=== PATIENT | male | born 1925 | race Caucasian/White ===

== ENCOUNTER → 2017-02-11 | Outpatient (CLI) | payer OTHER ==
[~2017-02-11] MED LIST: ACET-1256 PO; ACET325T96 PO; ASPEC81 PO; ASPI-232 PO; BISA10SU38 PR; DXY100 PO; FLUO10CA48 PO; FLVHFA110 INH; FLVHFA220 INH; GLIM1TAB PO; GLIM2TAB PO; GLIM2TAB2 PO; INSU100I SC; LEVO100T PO; LISI-725 PO; METF1000 PO; MOMLX PO; MORP-157 PO; MORP15TA19 PO; OXYC10SO SL; POLY335019 PO; PRLSR20 PO; PRNJ PO; SCOP1.5D2 TD; SENN-83 PO; SIMV10TA2 PO; SODIENE PR; TAMS0.4C38 PO; TRAM-10 PO
[2017-02-11 09:01] LABS: ESTIMATED AVERAGE GLUCOSE 186 mg/dl; HA1C FLAG Normal (Normal)
== END ==
LOC: C.LABCC 08:08
PROVIDERS: ATTEND Internal Medicine
DX: E11.9 Type 2 diabetes mellitus without complications (principal)

== ENCOUNTER → 2017-04-15 | Outpatient (CLI) | payer OTHER ==
[~2017-04-15] MED LIST changes: -SCOP1.5D2 TD; +SCOP1DIS14 TD
== END ==
LOC: C.LABCC 07:42
PROVIDERS: ATTEND Internal Medicine
DX: E03.9 Hypothyroidism, unspecified (principal)

== ENCOUNTER 2017-06-05 15:23 | Inpatient (IN) | payer OTHER ==
[~2017-06-05] VITALS: Ht 177.8 cm; Wt 73.7 kg
[~2017-06-05 15:23] MED LIST changes: -ASPI-232 PO; -FLVHFA110 INH; -GLIM2TAB2 PO; -MORP-157 PO; -OXYC10SO SL; -SCOP1DIS14 TD
[2017-06-05] MEDS ORDERED: SODIUM CHLORIDE 0.9% 1000ML 1,000 ML IV STA (15:37)
[2017-06-05] MEDS ORDERED: DOPamine 400MG / D5W 400 MG IV STA (15:38)
[2017-06-05] MEDS ORDERED: SODIUM CHLORIDE 0.9% 500ML 500 ML IV STA (15:38)
[2017-06-05] MEDS ORDERED: ATROPINE SULFATE 0.1 MG/ML 5ML SYR IV STA (15:39)
[2017-06-05 15:45] VITALS: O2SAT 100
[2017-06-05 15:59] LABS: ISTAT CREATININE 1.9 mg/dl (0.6-1.3); ISTAT HEMOGLOBIN 12.9 g/dl (14.0-18.0); ISTAT IONIZED CALCIUM 1.16 mmol/l (1.12-1.32)
--- NOTE | 2017-06-05 16:00 | DIAGNOSTIC IMAGING REPORT ---
SINGLE VIEW CHEST CLINICAL HISTORY: Weakness. Bradycardia. FINDINGS: An AP, portable, semierect chest radiograph is compared to study dated 10/13/2016 and correlated with chest CT dated 12/30/2011. The examination is significantly degraded by portable technique and patient rotation. The heart is enlarged. There is atherosclerotic calcification with uncoiling of the thoracic aorta. The pulmonary vasculature is noncongested. Apical scarring and chronic interstitial thickening is similar to previous. No airspace consolidation or large pleural effusion is identified. There is left basilar atelectasis. No pneumothorax is seen. The skeletal structures are osteopenic. The bony thorax is grossly intact. IMPRESSION: 1. Cardiomegaly without radiographic evidence of congestive failure. 2. There is atherosclerotic calcification with uncoiling of the thoracic aorta. The aortic/mediastinal silhouette appears widened from prior studies, likely related to marked patient rotation. Repeat examination with improved positioning is recommended. 3. No airspace consolidation or pleural effusion is identified. Electronically signed by: Jere Reyes M.D. 06/05/2017 3:59 PM Dictated Date/Time: 06/05/2017 3:56 PM
[2017-06-05 16:08] LABS: BASO % 0.2 %; BASO ABS # 0.03 K/uL (0-0.2); COMPLETE YES; EOS % 1.7 %; HEMATOCRIT 36.3 % (42-52); IG% 0.4 %; LYMPH % 14.7 %; LYMPH ABS # 2.38 K/uL (1.2-3.4); MEAN CORPUSCULAR HEMOGLOBIN 27.5 pg (25-34); MEAN PLATELET VOLUME 10.5 fL (7.4-10.4); MONO % 6.7 %; NEUT % 76.3 %; PLATELET COUNT 327 K/uL (130-400); RED BLOOD COUNT 4.22 M/uL (4.7-6.1); WHITE BLOOD COUNT 16.17 K/uL (4.8-10.8)
[2017-06-05 16:19] LABS: INR 1.1 (0.9-1.1); PROTHROMBIN TIME (PATIENT) 11.3 SECONDS (9.0-12.0)
[2017-06-05 16:25] LABS: ALT/SGPT 18 U/L (12-78); BLOOD UREA NITROGEN 35 mg/dl (7-18); BUN/CREATININE RATIO 17.6 (10-20); CALCIUM 8.7 mg/dl (8.5-10.1); CARBON DIOXIDE 25 mmol/L (21-32); CHLORIDE 102 mmol/L (98-107); GLUCOSE 243 mg/dl (70-99); MAGNESIUM 1.7 mg/dl (1.8-2.4); POTASSIUM 5.4 mmol/L (3.5-5.1); SODIUM 138 mmol/L (136-145)
[2017-06-05] MEDS ORDERED: ASPI-232 PO (16:35)
[2017-06-05] MEDS ORDERED: FLVHFA110 INH (16:35)
[2017-06-05] MEDS ORDERED: GLIM2TAB2 PO (16:35)
[2017-06-05] MEDS ORDERED: MORP-157 PO (16:35)
[2017-06-05 16:36] LABS: ALKALINE PHOSPHATASE 60 U/L (45-117); AST/SGOT 13 U/L (15-37); CKMB/CK RATIO 1.7 (0-3.0)
[2017-06-05 17:18] LABS: LYME DISEASE AB IGG NEG (NEG); LYME DISEASE AB IGM NEG (NEG)
--- NOTE | 2017-06-05 17:58 | History and Physical ---
History & Physical Date & Time of Service: Jun 05, 2017 at 17:52 Chief Complaint: Bradycardia Primary Care Physician: Jocelyn Mckeon History of Present Illness Patient brought from [facility] with profound bradycardia and hypotension. The patient has suffered from previous anoxic brain injury and does not recommend his family. The patient is minimally responsive in the emergency department. Patient had transient capture of a transcutaneous pacemaker and did have some improvement of his heart rate with dopamine infusion. The patient's POA, his stepson, presented to the hospital and requested that we not have any significant heroic lifesaving measures, he made him a DO NOT RESUSCITATE is understanding that he may pass away. The patient is markedly hypotensive and montiel appearing he is in mild discomfort this time he is frontal facility for comfort care measures with expected Past Medical/Surgical History Medical Problems: (1) Chronic obstructive lung disease Status: Chronic (2) Depression Status: Chronic (3) Diabetes mellitus type 2 Status: Chronic (4) Gastroesophageal reflux disease Status: Chronic (5) Hyperlipidemia Status: Chronic Family History Family history is unable to be obtained at this point in time due to the severity of illness of the patient Social History Smoking Status: Unknown if Ever Smoked Marital Status: Housing status: intermediate, other Occupational Status: retired Immunizations History of Influenza Vaccine: Unknown History of Tetanus Vaccine?: Unknown History of Pneumococcal: Yes Pneumococcal Date: February 14, 2001 History of Hepatitis B Vaccine: Unknown Multi-Drug Resistant Organisms History of MDRO: No Allergies Coded Allergies: Quinolones (Verified Allergy, Unknown, 10/13/16) Home Medications Scheduled Acetaminophen (Tylenol), 500 MG PO W/BREAKFAST Aspirin (Aspir-81), 1 TAB PO DAILY Fluoxetine (Prozac), 10 MG PO DAILY Fluticasone Propionate (Flovent Hfa), 2 PUFFS INH BID Glimepiride (Amaryl), 2 MG PO W/SUPPER Glimepiride (Glimepiride), 1.5 TAB PO W/BREAKFAST Levothyroxine Sodium (Synthroid), 100 MCG PO DAILY Lisinopril (Zestril), 20 MG PO DAILY Metformin Hcl (Glucophage), 1,000 MG PO BIDM Morphine Cont Rel (Ms Contin), 15 MG PO Q12 Omeprazole (Prilosec), 20 MG PO DAILY Polyethylene Glycol 3350 (Miralax), 17 GM PO DAILY Sennosides-Docusate Sodium (Senexon-S), 1 TAB PO QAM Simvastatin (Zocor), 10 MG PO QPM Tamsulosin Hcl (Flomax), 0.4 MG PO QAM Scheduled PRN Insulin Lispro (Human) (Humalog), 0 SC for sliding scale Physical Exam Vital Signs Date Time Temp Pulse Resp B/P (MAP) Pulse Ox O2 Delivery O2 Flow Rate FiO2 06/05/17 16:43 95 Nasal Cannula 6.0 06/05/17 16:40 80/51 06/05/17 16:35 78/49 06/05/17 16:33 66 99 06/05/17 16:30 79/45 06/05/17 16:29 80/44 06/05/17 16:25 75/46 06/05/17 16:23 104/44 06/05/17 16:18 64 06/05/17 16:15 68 26 52/38 06/05/17 16:14 35 06/05/17 16:13 63 06/05/17 16:08 35 06/05/17 16:03 73 06/05/17 16:00 64/41 06/05/17 15:58 74 06/05/17 15:53 83 06/05/17 15:48 82 06/05/17 15:45 72 22 64/42 100 Non-Rebreather 15.0 06/05/17 15:45 Non-Rebreather 15.0 06/05/17 15:45 100 Non-Rebreather 15.0 06/05/17 15:45 100 Non-Rebreather 06/05/17 15:43 89 06/05/17 15:38 89 06/05/17 15:35 86 General Appearance: + severe distress, + thin Head: normocephalic, atraumatic Neck: supple, trachea midline Respiratory/Chest: + respiratory distress, + decreased breath sounds, + accessory muscle use, + rhonchi Cardiovascular: + bradycardia, + systolic murmur Abdomen/GI: soft, + abnormal bowel sounds Extremities/Musculoskelatal: + pedal edema Neurologic/Psych: + depressed affect, + disoriented Diagnostics Laboratory Results Results Past 24 Hours Test 06/05/17 15:40 06/05/17 15:47 06/05/17 15:58 Range/Units Prothrombin Time 11.3 9.0-12.0 SECONDS Prothromb Time International Ratio 1.1 0.9-1.1 Activated Partial Thromboplast Time 26.5 21.0-31.0 SECONDS Partial Thromboplastin Ratio 1.0 Sodium Level 138 136-145 mmol/L Potassium Level 5.4 3.5-5.1 mmol/L Chloride Level 102 98-107 mmol/L Carbon Dioxide Level 25 21-32 mmol/L Anion Gap 11.0 20.0 16-25 mmol/L Blood Urea Nitrogen 35 7-18 mg/dl Creatinine 2.00 0.60-1.40 mg/dl Est Creatinine Clear Calc Drug Dose 25.9 ml/min Estimated GFR () 33.3 Estimated GFR (Non- 28.7 BUN/Creatinine Ratio 17.6 10-20 Random Glucose 243 70-99 mg/dl Calcium Level 8.7 8.5-10.1 mg/dl Magnesium Level 1.7 1.8-2.4 mg/dl Total Bilirubin 0.2 0.2-1 mg/dl Direct Bilirubin < 0.1 0-0.2 mg/dl Aspartate Amino Transf (AST/SGOT) 13 15-37 U/L Alanine Aminotransferase (ALT/SGPT) 18 12-78 U/L Alkaline Phosphatase 60 45-117 U/L Total Creatine Kinase 156 39-308 U/L Creatine Kinase MB 2.7 0.5-3.6 ng/ml Creatine Kinase MB Ratio 1.7 0-3.0 Total Protein 7.7 6.4-8.2 gm/dl Albumin 3.6 3.4-5.0 gm/dl Thyroid Stimulating Hormone (TSH) 5.060 0.300-4.500 uIu/ml Lyme Disease IgG Antibody NEG NEG Lyme Disease IgM Antibody NEG NEG Bedside Hemoglobin 12.9 14.0-18.0 g/dl Bedside Hematocrit 38 42-52 % Bedside Sodium 138 135-144 mEq/L Bedside Potassium 5.6 3.3-5.0 mEq/L Bedside Chloride 101 101-112 mEq/L Bedside Total CO2 24 24-31 mEq/l Bedside Blood Urea Nitrogen 33 7-18 mg/dl Bedside Creatinine 1.9 0.6-1.3 mg/dl Bedside Glucose (other) 251 70-99 mg/dl Bedside Ionized Calcium (Gama) 1.16 1.12-1.32 mmol/l White Blood Count 16.17 4.8-10.8 K/uL Red Blood Count 4.22 4.7-6.1 M/uL Hemoglobin 11.6 14.0-18.0 g/dL Hematocrit 36.3 42-52 % Mean Corpuscular Volume 86.0 80-100 fL Mean Corpuscular Hemoglobin 27.5 25-34 pg Mean Corpuscular Hemoglobin Concent 32.0 32-36 g/dl Platelet Count 327 130-400 K/uL Mean Platelet Volume 10.5 7.4-10.4 fL Neutrophils (%) (Auto) 76.3 % Lymphocytes (%) (Auto) 14.7 % Monocytes (%) (Auto) 6.7 % Eosinophils (%) (Auto) 1.7 % Basophils (%) (Auto) 0.2 % Neutrophils # (Auto) 12.35 1.4-6.5 K/uL Lymphocytes # (Auto) 2.38 1.2-3.4 K/uL Monocytes # (Auto) 1.08 0.11-0.59 K/uL Eosinophils # (Auto) 0.27 0-0.5 K/uL Basophils # (Auto) 0.03 0-0.2 K/uL RDW Standard Deviation 45.2 36.4-46.3 fL RDW Coefficient of Variation 14.5 11.5-14.5 % Immature Granulocyte % (Auto) 0.4 % Immature Granulocyte # (Auto) 0.06 0.00-0.02 K/uL Diagnostic Radiology There is mild hyperkalemia renal failure with creatinine of 2 other (chest x-ray without significant abnormalities) other (patient is third-degree heart block and bradycardia) Impression Assessment and Plan 89-year-old male from a [facility] facility who presents with third-degree heart block and hypotension. There is no direct reason for the heart block he only has mild hyperkalemia. Patient was seen by cardiology and discussions for an emergent and transvenous pacemaker were undertaken. The power of litigation attorney associate did not wish to pursue any aggressive measures. Next The patient was brought into facility for comfort care measures, intravenous fluids and dopamine will be stopped, his heart block likely progressive hypotension and that could be expected. The patient will be given when necessary morphine and Ativan transdermal scopolamine and oxygen with antiemetics of Zofran and Phenergan if needed Family is at the bedside and understanding VTE Prophylaxis VTE Risk Assessment Done? Y/N: Yes Risk Level: Moderate
[2017-06-05] MEDS ORDERED: ATROPINE SULFATE 1% OP SOLN 2 ML BTL PO PRN (18:00)
[2017-06-05] MEDS ORDERED: LORAZEPAM 2 MG/ML 1 ML VIAL IV PRN ×2 (18:00)
[2017-06-05] MEDS ORDERED: ONDANSETRON INJ 2 MG/ML 2 ML VIAL IV PRN (18:00)
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
[2017-06-05 18:27] VITALS: O2SAT 95; Ht 177.8 cm; Wt 73.7 kg
[2017-06-05 18:45] VITALS: PULSE 66
[2017-06-05] MEDS: MoRPHine SULFATE 2 MG/ML CARP IV PRN (19:31)
--- NOTE | 2017-06-05 19:31 | EMERGENCY ROOM VISIT NOTE ---
History Report prepared by Barbara: Deyvi Batista Under the Supervision of: Dr. Chinmay Dumont M.D. First contact with patient: 15:24 Stated Complaint: BRADYCARDIA History of Present Illness The patient is a 89 year old male who presents to the Emergency Room with complaints of persistent bradycardia and hypotension beginning today. He is a resident at [facility]. The patient also complains of chest pain and SOB. Per EMS, the patient had his vital signs checked today after he was found to have an altered mental status. They state that the patient was found to have a heart rate in the 30's and a blood pressure of 60/40 on scene. They state that the patient appeared to be in a 3rd degree heart block on the emergency communications operator as well. The patient denies any abdominal pain or headache. HPI limited secondary to mental status. Source of History: patient, EMS History Limited By: other (mental status) Onset: Today Symptom Intensity: heart rate in the 30's and a blood pressure of 60/40 Quality: other (hypotension and bradycardia) Timing: other (persistent) Associated Symptoms: + chest pain, + SOB, No headache, No abdominal pain Note: Additional symptoms: altered mental status. Review of Systems ROS limited secondary to mental status. Past Medical & Surgical Medical Problems: (1) Chronic obstructive lung disease (2) Complete heart block (3) Depression (4) Diabetes mellitus type 2 (5) Gastroesophageal reflux disease (6) Hyperlipidemia (7) Need for comfort care Family History Unobtainable secondary to mental status. Social History Smoking Status: Never Smoker Marital Status: Housing Status: [facility] Occupation Status: retired Current/Historical Medications Scheduled Acetaminophen (Tylenol), 500 MG PO W/BREAKFAST Aspirin (Aspir-81), 1 TAB PO DAILY Fluoxetine (Prozac), 10 MG PO DAILY Fluticasone Propionate (Flovent Hfa), 2 PUFFS INH BID Glimepiride (Amaryl), 2 MG PO W/SUPPER Glimepiride (Glimepiride), 1.5 TAB PO W/BREAKFAST Levothyroxine Sodium (Synthroid), 100 MCG PO DAILY Lisinopril (Zestril), 20 MG PO DAILY Metformin Hcl (Glucophage), 1,000 MG PO BIDM Morphine Cont Rel (Ms Contin), 15 MG PO Q12 Omeprazole (Prilosec), 20 MG PO DAILY Polyethylene Glycol 3350 (Miralax), 17 GM PO DAILY Sennosides-Docusate Sodium (Senexon-S), 1 TAB PO QAM Simvastatin (Zocor), 10 MG PO QPM Tamsulosin Hcl (Flomax), 0.4 MG PO QAM Scheduled PRN Insulin Lispro (Human) (Humalog), 0 SC for sliding scale Allergies Coded Allergies: Quinolones (Verified Allergy, Unknown, 10/13/16) Physical Exam Vital Signs Date Time Temp Pulse Resp B/P (MAP) Pulse Ox O2 Delivery O2 Flow Rate FiO2 06/05/17 17:45 63 93/49 91 06/05/17 17:30 61 99/51 89 06/05/17 17:15 63 95/53 93 06/05/17 17:00 66 99/49 90 06/05/17 16:45 66 86/43 93 06/05/17 16:43 95 Nasal Cannula 6.0 06/05/17 16:40 80/51 06/05/17 16:35 78/49 06/05/17 16:33 66 99 06/05/17 16:30 79/45 06/05/17 16:29 80/44 06/05/17 16:25 75/46 06/05/17 16:23 104/44 06/05/17 16:18 64 06/05/17 16:15 68 26 52/38 06/05/17 16:14 35 06/05/17 16:13 63 06/05/17 16:08 35 06/05/17 16:03 73 06/05/17 16:00 64/41 06/05/17 15:58 74 06/05/17 15:53 83 06/05/17 15:48 82 06/05/17 15:45 72 22 64/42 100 Non-Rebreather 15.0 06/05/17 15:45 Non-Rebreather 15.0 06/05/17 15:45 100 Non-Rebreather 15.0 06/05/17 15:45 100 Non-Rebreather 06/05/17 15:43 89 06/05/17 15:38 89 06/05/17 15:35 86 Physical Exam GENERAL: Awake, alert, uncomfortable-appearing, in no distress HENT: Normocephalic, atraumatic. Oropharynx unremarkable. EYES: Normal conjunctiva. Sclera non-icteric. NECK: Supple. No nuchal rigidity. FROM. No JVD. RESPIRATORY: Clear to auscultation. CARDIAC: Bradycardic rate, normal rhythm. Extremities warm and well perfused. Pulses equal. ABDOMEN: Soft, non-distended. No tenderness to palpation. No rebound or guarding. No masses. RECTAL: Deferred. MUSCULOSKELETAL: Chest examination reveals no tenderness. The back is symmetrical on inspection without obvious abnormality. There is no CVA tenderness to palpation. No joint edema. LOWER EXTREMITIES: Calves are equal size bilaterally and non-tender. No edema. No discoloration. Cool to the touch. Distal pulses non-palpable. NEURO: Normal sensorium. No sensory or motor deficits noted. SKIN: No rash or jaundice noted. Medical Decision & Procedures ER Provider Diagnostic Interpretation: X-ray: Per my interpretation, radiologist review. SINGLE VIEW CHEST FINDINGS: An AP, portable, semierect chest radiograph is compared to study dated 10/13/2016 and correlated with chest CT dated 12/30/2011. The examination is significantly degraded by portable technique and patient rotation. The heart is enlarged. There is atherosclerotic calcification with uncoiling of the thoracic aorta. The pulmonary vasculature is noncongested. Apical scarring and chronic interstitial thickening is similar to previous. No airspace consolidation or large pleural effusion is identified. There is left basilar atelectasis. No pneumothorax is seen. The skeletal structures are osteopenic. The bony thorax is grossly intact. IMPRESSION: 1. Cardiomegaly without radiographic evidence of congestive failure. 2. There is atherosclerotic calcification with uncoiling of the thoracic aorta. The aortic/mediastinal silhouette appears widened from prior studies, likely related to marked patient rotation. Repeat examination with improved positioning is recommended. 3. No airspace consolidation or pleural effusion is identified. Electronically signed by: Jere Reyes M.D. Laboratory Results 06/05/17 15:58 Red Blood Count 4.22, Mean Corpuscular Volume 86.0, Mean Corpuscular Hemoglobin 27.5, Mean Corpuscular Hemoglobin Concent 32.0, Mean Platelet Volume 10.5, Neutrophils (%) (Auto) 76.3, Lymphocytes (%) (Auto) 14.7, Monocytes (%) (Auto) 6.7, Eosinophils (%) (Auto) 1.7, Basophils (%) (Auto) 0.2, Neutrophils # (Auto) 12.35, Lymphocytes # (Auto) 2.38, Monocytes # (Auto) 1.08, Eosinophils # (Auto) 0.27, Basophils # (Auto) 0.03 06/05/17 15:40 Test 06/05/17 15:40 06/05/17 15:47 06/05/17 15:58 Prothrombin Time 11.3 SECONDS (9.0-12.0) Prothromb Time International Ratio 1.1 (0.9-1.1) Activated Partial Thromboplast Time 26.5 SECONDS (21.0-31.0) Partial Thromboplastin Ratio 1.0 Est Creatinine Clear Calc Drug Dose 25.9 ml/min Estimated GFR () 33.3 Estimated GFR (Non- 28.7 BUN/Creatinine Ratio 17.6 (10-20) Calcium Level 8.7 mg/dl (8.5-10.1) Magnesium Level 1.7 mg/dl (1.8-2.4) Total Bilirubin 0.2 mg/dl (0.2-1) Direct Bilirubin < 0.1 mg/dl (0-0.2) Aspartate Amino Transf (AST/SGOT) 13 U/L (15-37) Alanine Aminotransferase (ALT/SGPT) 18 U/L (12-78) Alkaline Phosphatase 60 U/L (45-117) Total Creatine Kinase 156 U/L (39-308) Creatine Kinase MB 2.7 ng/ml (0.5-3.6) Creatine Kinase MB Ratio 1.7 (0-3.0) Total Protein 7.7 gm/dl (6.4-8.2) Albumin 3.6 gm/dl (3.4-5.0) Thyroid Stimulating Hormone (TSH) 5.060 uIu/ml (0.300-4.500) Lyme Disease IgG Antibody NEG (NEG) Lyme Disease IgM Antibody NEG (NEG) Bedside Hemoglobin 12.9 g/dl (14.0-18.0) Bedside Hematocrit 38 % (42-52) Bedside Sodium 138 mEq/L (135-144) Bedside Potassium 5.6 mEq/L (3.3-5.0) Bedside Chloride 101 mEq/L (101-112) Bedside Total CO2 24 mEq/l (24-31) Anion Gap 20.0 mmol/L (16-25) Bedside Blood Urea Nitrogen 33 mg/dl (7-18) Bedside Creatinine 1.9 mg/dl (0.6-1.3) Bedside Glucose (other) 251 mg/dl (70-99) Bedside Ionized Calcium (Gama) 1.16 mmol/l (1.12-1.32) White Blood Count 16.17 K/uL (4.8-10.8) Red Blood Count 4.22 M/uL (4.7-6.1) Hemoglobin 11.6 g/dL (14.0-18.0) Hematocrit 36.3 % (42-52) Mean Corpuscular Volume 86.0 fL (80-100) Mean Corpuscular Hemoglobin 27.5 pg (25-34) Mean Corpuscular Hemoglobin Concent 32.0 g/dl (32-36) Platelet Count 327 K/uL (130-400) Mean Platelet Volume 10.5 fL (7.4-10.4) Neutrophils (%) (Auto) 76.3 % Lymphocytes (%) (Auto) 14.7 % Monocytes (%) (Auto) 6.7 % Eosinophils (%) (Auto) 1.7 % Basophils (%) (Auto) 0.2 % Neutrophils # (Auto) 12.35 K/uL (1.4-6.5) Lymphocytes # (Auto) 2.38 K/uL (1.2-3.4) Monocytes # (Auto) 1.08 K/uL (0.11-0.59) Eosinophils # (Auto) 0.27 K/uL (0-0.5) Basophils # (Auto) 0.03 K/uL (0-0.2) RDW Standard Deviation 45.2 fL (36.4-46.3) RDW Coefficient of Variation 14.5 % (11.5-14.5) Immature Granulocyte % (Auto) 0.4 % Immature Granulocyte # (Auto) 0.06 K/uL (0.00-0.02) Laboratory results reviewed by me Medications Administered Medications (Trade) Dose Ordered Sig/David Route Start Time Stop Time Status Last Admin Dose Admin Sodium Chloride 1,000 ml @ 125 mls/hr Q8H STAT IV 06/05/17 15:37 06/05/17 23:36 06/05/17 16:08 125 MLS/HR Dopamine HCl/ Dextrose 0 ml @ 0 mls/hr Q0M STAT IV 06/05/17 15:38 06/05/17 15:39 DC 06/05/17 15:42 10 MLS/HR Sodium Chloride 500 ml @ 999 mls/hr Q31M STAT IV 06/05/17 15:38 06/05/17 16:08 DC 06/05/17 15:43 999 MLS/HR Atropine Sulfate (Atropine Sulfate 0.1MG/Ml Inj) 0.5 mg NOW STAT IV 06/05/17 15:39 06/05/17 15:47 DC 06/05/17 15:59 0.5 MG ECG Indication: other (bradycardia and hypotension) Rate (beats per minute): 36 Rhythm: other (complete heart block) Findings: no acute ischemic change Change: Repeat ECG reveals a sinus rhythm with a 1st degree AV block. Septal Q-waves noted. No acute ischemic change seen. ED Course 1527: The patient was evaluated in room B1. A complete history and physical exam was performed. 1537: Ordered Sodium Chloride 1000 ml @ 125 mls/hr IV, Sodium Chloride 500 ml @ 999 mls/hr IV, Dopamine HCl/Dextrose IV, Atropine Sulfate 0.1 mg/mL Inj 0.5 mg IV. 1546: Limited cardiac ultrasound reveals bradycardic rate and no pericardial effusion. 1600: Dr. Rajan spoke with the patient's family. They would like to discuss whether the patient should proceed with an invasive procedure given [facility] the [facility]. The patient is still hypotensive at this time. 1622: The patient's family decided that they would not like to proceed with a pacemaker. They would like to continue with the medication, but stop the external pacemaker. 1637: Upon reexamination, the patient was resting. He is currently off of the pacemaker and is on 20 mcg/kg/min of Dopamine. I discussed the test results and treatment plan with his family. The patient will be evaluated for further management. 1725: The patient's family arrived. I updated them on the situation. Medical Decision Triage Nursing notes reviewed. The patient's presentation and history were concerning for altered mental status and profound bradycardia. Etiologies such as complete heart block, metabolic, infection, hypo/ hyperglycemia, electrolyte abnormalities, cardiac sources, intracerebral event, toxicologic, neurologic, lung disease as well as others were entertained. The patient was evaluated. I did take medical command on the patient. He appeared to be in a complete heart block. Initially atropine was ineffective. I did discuss the case with Dr. Panda of cardiology after discussion with EMS. He was standing by for the patient's arrival. Patient arrived in the emergency department and he was being paced. This was continued. He was on 80 mA and I did a bedside ultrasound. He did not have complete capture with this. He had poor contractility of his left ventricle. I-STAT was unremarkable except for a mild elevation of creatinine. When increased up to 100 mA there was no significant change in capture rate and the patient was extremely uncomfortable. At this point dopamine was ordered. Dr. Panda presented to the emergency department and we evaluated the patient together. The patient has significant chronic medical issues. We contacted the patient's family to discuss the case. It was felt that the patient was not an ideal candidate for a pacer. EP is not currently available here and he would need to be transferred. The patient has a poor quality of life as it is. Family notes that due to his dementia he does not even recognize them. After discussion between Dr. Panda and family it was felt that the patient will be made comfort measures. The patient was evaluated by Dr. Cartagena as well and he was in agreement. The patient's CBC revealed a mild leukocytosis. Remainder of his blood work was unremarkable. The family was updated when they presented to the emergency department. The patient was taken off the pacemaker and was on dopamine. This was titrated up to 20 prior to family arrival and the patient was found to be in a bradycardia with mild hypotension. He was perfusing. Repeat ECG was performed and revealed a sinus with first-degree AV block. The patient will be admitted to the hospital for further management. Consults Time Called: 1530 Consulting Physician: Dr. Panda -Cardiology Returned Call: 1533 Discussed the patient's case. Dr. Panda will come see the patient. Additional Consults: Time Called: 1625 Consulted Physician: [place]. [place] [place] Call: 1630 Additional Comments: Discussed the patient's case. The patient will be evaluated for further treatment and disposition. Impression Primary Impression: Complete heart block Additional Impression: Hypotension Critical Care I have personally spent greater than 45 minutes of critical care time in the direct management of this patient. This includes bedside care, interpretation of diagnostic studies, and testing, discussion with consultants, patient, and family members, and other required patient management activities. This 45 minutes is in excess of all separately billable procedures. Scribe Attestation The scribe's documentation has been prepared under my direction and personally reviewed by me in its entirety. I confirm that the note above accurately reflects all work, treatment, procedures, and medical decision making performed by me. Departure Information Dispostion Being Evaluated By Hospitalist Referrals GreenwoodJocelyn (PCP) Problem Qualifiers
[2017-06-05] MEDS ORDERED: LORAZEPAM INJ 0.5 MG in SYRINGE 0.75 ML IV PRN (19:45)
[2017-06-05] MEDS: LORAZEPAM INJ 1 MG in SYRINGE 0.5 ML IV PRN (19:47)
[2017-06-05] MEDS: SCOPOLAMINE 1.5 MG TDSY TD SCH (22:19)
[2017-06-05 23:39] VITALS: O2SAT 95
[2017-06-05 23:44] VITALS: BP 82/49
[2017-06-06] MEDS: CHECK SCOPOLAMINE PATCH PLACEMENT SCH ×4 (00:05→23:58)
[2017-06-06] MEDS: MoRPHine SULFATE 2 MG/ML CARP IV PRN ×4 (00:38→11:55)
[2017-06-06] MEDS: MoRPHine SULFATE 4 MG/ML 1 ML CARP\\VIAL IV PRN ×3 (13:44→20:05)
--- NOTE | 2017-06-06 15:22 | Progress Note ---
Subjective Date of Service: Jun 06, 2017. Subjective Pt evaluation today including: conversation w/ patient, physical exam, review of inpatient medication list Pain: appears comfortable PO Intake: not eating Voiding: no voiding problems patient had unwitnessed fall out of bed today, RN found him on knees by his bed got back into bed with assistance examined his head, no signs of injury, no obvious pain or distress will not answer questions appears comfortable at this time Problem List Medical Problems: (1) Anemia Status: Acute (2) Elevated lactic acid level Status: Acute (3) Hypotension Status: Acute Review of Systems could not review, not answering questions Medications Current Inpatient Medications Medications (Trade) Dose Ordered Sig/David Route Start Time Stop Time Status Last Admin Dose Admin Ondansetron HCl (Zofran Inj) 4 mg Q6H PRN IV 06/05/17 18:00 07/05/17 17:59 Lorazepam (Ativan Inj) 0.5 mg Q1H PRN IV 06/05/17 18:00 07/05/17 17:59 Lorazepam (Ativan Inj) 1 mg Q1H PRN IV 06/05/17 18:00 07/05/17 17:59 Morphine Sulfate (MoRPHine SULFATE INJ) 4 mg Q1H PRN IV 06/05/17 18:00 06/19/17 17:59 06/06/17 13:44 4 MG Morphine Sulfate (MoRPHine SULFATE INJ) 2 mg Q1H PRN IV 06/05/17 18:00 06/19/17 17:59 06/06/17 11:55 2 MG Scopolamine (Transderm-Scop Patch) 1.5 mg Q72H TD 06/05/17 18:00 07/05/17 17:59 06/05/17 22:19 1.5 MG Miscellaneous (Remove Transderm-Scop Patch) 1 ea Q72H N/A 06/08/17 18:00 07/08/17 17:59 Miscellaneous Information (Check Scopolamine Patch Placement) 1 ea QS N/A 06/06/17 00:00 07/06/17 00:00 06/06/17 07:36 1 EA Atropine Sulfate (ATROPINE SULFATE 1% Op Soln 2 ML) 4 drops Q2H PRN PO 06/05/17 18:00 07/05/17 17:59 Lorazepam 1 mg/ Syringe 1 ml @ 1 mls/min Q1H PRN IV 06/05/17 19:30 07/05/17 19:29 06/05/17 19:47 1 MLS/MIN Lorazepam 0.5 mg/ Syringe 1 ml @ 1 mls/min Q1H PRN IV 06/05/17 19:45 07/05/17 19:44 Objective Vital Signs Date Time Temp Pulse Resp B/P (MAP) Pulse Ox O2 Delivery O2 Flow Rate FiO2 06/06/17 08:35 Oxymask 6.0 06/05/17 23:44 82/49 (60) 06/05/17 23:39 95 Oxymask 6.0 06/05/17 18:46 51/41 06/05/17 18:45 66 06/05/17 18:30 63 06/05/17 18:27 95 Nasal Cannula 6.0 06/05/17 18:17 95/39 06/05/17 18:15 61 06/05/17 18:01 86/49 06/05/17 18:00 60 06/05/17 17:45 63 93/49 91 06/05/17 17:30 61 99/51 89 06/05/17 17:15 63 95/53 93 06/05/17 17:00 66 99/49 90 06/05/17 16:45 66 86/43 93 06/05/17 16:43 95 Nasal Cannula 6.0 06/05/17 16:40 80/51 06/05/17 16:35 78/49 06/05/17 16:33 66 99 06/05/17 16:30 79/45 06/05/17 16:29 80/44 06/05/17 16:25 75/46 06/05/17 16:23 104/44 06/05/17 16:18 64 06/05/17 16:15 68 26 52/38 06/05/17 16:14 35 06/05/17 16:13 63 06/05/17 16:08 35 06/05/17 16:03 73 06/05/17 16:00 64/41 06/05/17 15:58 74 06/05/17 15:53 83 06/05/17 15:48 82 06/05/17 15:45 72 22 64/42 100 Non-Rebreather 15.0 06/05/17 15:45 Non-Rebreather 15.0 06/05/17 15:45 100 Non-Rebreather 15.0 06/05/17 15:45 100 Non-Rebreather 06/05/17 15:43 89 06/05/17 15:38 89 06/05/17 15:35 86 Physical Exam General Appearance: WD/WN, no apparent distress Eyes: sclerae normal Neck: supple, no adenopathy, no JVD, trachea midline Respiratory/Chest: chest non-tender, lungs clear, normal breath sounds, no respiratory distress, no accessory muscle use Cardiovascular: no edema, no gallop, no JVD, no murmur, + bradycardia, + pertinent finding (weak pulses) Abdomen: normal bowel sounds, non tender, soft, no organomegaly Extremities: normal range of motion, non-tender, normal inspection, no pedal edema, no calf tenderness Neurologic/Psychiatric: coding compliance auditor II-XII nml as tested, + motor weakness, + depressed affect, + disoriented Skin: normal color, warm/dry, no rash Laboratory Results Last 24 Hours Test 06/05/17 15:40 06/05/17 15:47 06/05/17 15:58 06/05/17 16:01 Prothrombin Time 11.3 SECONDS Prothromb Time International Ratio 1.1 Activated Partial Thromboplast Time 26.5 SECONDS Partial Thromboplastin Ratio 1.0 Sodium Level 138 mmol/L Potassium Level 5.4 mmol/L Chloride Level 102 mmol/L Carbon Dioxide Level 25 mmol/L Anion Gap 11.0 mmol/L 20.0 mmol/L Blood Urea Nitrogen 35 mg/dl Creatinine 2.00 mg/dl Est Creatinine Clear Calc Drug Dose 25.9 ml/min Estimated GFR () 33.3 Estimated GFR (Non- 28.7 BUN/Creatinine Ratio 17.6 Random Glucose 243 mg/dl Calcium Level 8.7 mg/dl Magnesium Level 1.7 mg/dl Total Bilirubin 0.2 mg/dl Direct Bilirubin < 0.1 mg/dl Aspartate Amino Transf (AST/SGOT) 13 U/L Alanine Aminotransferase (ALT/SGPT) 18 U/L Alkaline Phosphatase 60 U/L Total Creatine Kinase 156 U/L Creatine Kinase MB 2.7 ng/ml Creatine Kinase MB Ratio 1.7 Total Protein 7.7 gm/dl Albumin 3.6 gm/dl Thyroid Stimulating Hormone (TSH) 5.060 uIu/ml Lyme Disease IgG Antibody NEG Lyme Disease IgM Antibody NEG Bedside Hemoglobin 12.9 g/dl Bedside Hematocrit 38 % Bedside Sodium 138 mEq/L Bedside Potassium 5.6 mEq/L Bedside Chloride 101 mEq/L Bedside Total CO2 24 mEq/l Bedside Blood Urea Nitrogen 33 mg/dl Bedside Creatinine 1.9 mg/dl Bedside Glucose (other) 251 mg/dl Bedside Ionized Calcium (Gama) 1.16 mmol/l White Blood Count 16.17 K/uL Red Blood Count 4.22 M/uL Hemoglobin 11.6 g/dL Hematocrit 36.3 % Mean Corpuscular Volume 86.0 fL Mean Corpuscular Hemoglobin 27.5 pg Mean Corpuscular Hemoglobin Concent 32.0 g/dl Platelet Count 327 K/uL Mean Platelet Volume 10.5 fL Neutrophils (%) (Auto) 76.3 % Lymphocytes (%) (Auto) 14.7 % Monocytes (%) (Auto) 6.7 % Eosinophils (%) (Auto) 1.7 % Basophils (%) (Auto) 0.2 % Neutrophils # (Auto) 12.35 K/uL Lymphocytes # (Auto) 2.38 K/uL Monocytes # (Auto) 1.08 K/uL Eosinophils # (Auto) 0.27 K/uL Basophils # (Auto) 0.03 K/uL RDW Standard Deviation 45.2 fL RDW Coefficient of Variation 14.5 % Immature Granulocyte % (Auto) 0.4 % Immature Granulocyte # (Auto) 0.06 K/uL Bedside Troponin I < 0.030 ng/ml Assessment and Plan 89-year-old male from a [facility] facility who presents with third-degree heart block and hypotension. There is no direct reason for the heart block he only has mild hyperkalemia. Patient was seen by cardiology and discussions for an emergent and transvenous pacemaker were undertaken. The power of corporate associate attorney did not wish to pursue any aggressive measures - complete AV block with associated hypotension: comfort measures only, patient appears comfortable today PRN Morphine, Ativan - unwitnessed fall to floor: examined patient, no apparent injuries, continue comfort care
[2017-06-06] MEDS: LORAZEPAM INJ 1 MG in SYRINGE 0.5 ML IV PRN ×2 (16:54→20:33)
--- NOTE | 2017-06-07 06:48 | Clinical Documentation Query ---
CLINICAL DOCUMENTATION QUERY Query #1/3 89 year old male who presents to the Emergency Room with complaints of persistent bradycardia, hypotension, SOB, an CP. In your clinical opinion is this patient being managed for: ( ) Respiratory failure in setting of CHB, cardiogenic shock, & CHF treated with O2, comfort care, scopolamine, morphine, and ativan. ( ) Other explanation of clinical findings (Please Explain) ( ) Unable to determine (Please Define) ( ) Need to Discuss ( ) Not Agree The medical record reflects the following clinical findings, treatment, and risk factors. Clinical Indicators: bradycardia as low as 35, tachypnea 26, hypotension 50's/40's. Documentation from H&P states, minimally responsive, +respiratory distress, +accessory muscle use, and rhonchi Treatment: O2, comfort care, scopolamine patch, morphine, ativan, Risk Factors: Age, CHB, Query #2/3 In your clinical opinion is this patient being managed for: ( ) Cardiogenic shock in setting of CHB treated with comfort measures, CXR, O2, IV morphine and ativan ( ) Other explanation of clinical findings (Please Explain) ( ) Unable to determine (Please Define) ( ) Need to Discuss ( ) Not Agree The medical record reflects the following clinical findings, treatment, and risk factors. Clinical Indicators: Bradycardia as low as mid 30's, hypotension as low as 50's/40's, patient was noted to minimally responsive and in respiratory distress. Treatment: O2, comfort care, scopolamine patch, morphine, ativan, Risk Factors: Age, CHB, Query #3/3 In your clinical opinion is this patient being managed for: ( ) Acute kidney failure in setting of CHB ( ) Other explanation of clinical findings (Please Explain) ( ) Unable to determine (Please Define) ( ) Need to Discuss ( ) Not Agree The medical record reflects the following clinical findings, treatment, and risk factors. Clinical Indicators: BUN 35, Creatinine 2.00, GFR 28.7 Treatment: Palliative care Risk Factors: Age, bradycardia, hypotension Please clarify and document your clinical opinion in the progress notes and discharge summary. Terms such as "probable", "suspected", "likely", "questionable", "possible", or "still to be ruled out" are acceptable. IF IN AGREEMENT, YOU MUST DOCUMENT ABOVE DIAGNOSTIC STATEMENT IN DAILY PROGRESS NOTES AND DISCHARGE SUMMARY. This document is not part of the patient's record. Thank You, Anatoly Read RN [phone]
[2017-06-07] MEDS: CHECK SCOPOLAMINE PATCH PLACEMENT SCH ×3 (07:38→23:29)
[2017-06-07] MEDS: LORAZEPAM INJ 1 MG in SYRINGE 0.5 ML IV PRN (14:23)
--- NOTE | 2017-06-07 15:03 | Progress Note ---
Subjective Date of Service: Jun 07, 2017. Subjective Pt evaluation today including: conversation w/ family, physical exam, review of inpatient medication list Pain: no pain PO Intake: not eating Voiding: incontinence patient resting comfortably, non-verbal this AM long talk with the step son at the bedside he was concerned that maybe he didn't make the right decision, maybe the patient should have fluids I assured him that he had made the right decision, the patient was comfortable step son felt relieved after our conversation Problem List Medical Problems: (1) Anemia Status: Acute (2) Elevated lactic acid level Status: Acute (3) Hypotension Status: Acute Review of Systems cannot review, non-verbal Medications Current Inpatient Medications Medications (Trade) Dose Ordered Sig/David Route Start Time Stop Time Status Last Admin Dose Admin Ondansetron HCl (Zofran Inj) 4 mg Q6H PRN IV 06/05/17 18:00 07/05/17 17:59 Lorazepam (Ativan Inj) 0.5 mg Q1H PRN IV 06/05/17 18:00 07/05/17 17:59 Lorazepam (Ativan Inj) 1 mg Q1H PRN IV 06/05/17 18:00 07/05/17 17:59 Morphine Sulfate (MoRPHine SULFATE INJ) 4 mg Q1H PRN IV 06/05/17 18:00 06/19/17 17:59 06/06/17 20:05 4 MG Morphine Sulfate (MoRPHine SULFATE INJ) 2 mg Q1H PRN IV 06/05/17 18:00 06/19/17 17:59 06/06/17 11:55 2 MG Scopolamine (Transderm-Scop Patch) 1.5 mg Q72H TD 06/05/17 18:00 07/05/17 17:59 06/05/17 22:19 1.5 MG Miscellaneous (Remove Transderm-Scop Patch) 1 ea Q72H N/A 06/08/17 18:00 07/08/17 17:59 Miscellaneous Information (Check Scopolamine Patch Placement) 1 ea QS N/A 06/06/17 00:00 07/06/17 00:00 06/07/17 07:38 1 EA Atropine Sulfate (ATROPINE SULFATE 1% Op Soln 2 ML) 4 drops Q2H PRN PO 06/05/17 18:00 07/05/17 17:59 Lorazepam 1 mg/ Syringe 1 ml @ 1 mls/min Q1H PRN IV 06/05/17 19:30 07/05/17 19:29 06/07/17 14:23 1 MLS/MIN Lorazepam 0.5 mg/ Syringe 1 ml @ 1 mls/min Q1H PRN IV 06/05/17 19:45 07/05/17 19:44 Objective Vital Signs Date Time Temp Pulse Resp B/P (MAP) Pulse Ox O2 Delivery O2 Flow Rate FiO2 06/07/17 08:00 Oxymask 6.0 06/07/17 00:00 Oxymask 6.0 06/06/17 16:00 Mask Physical Exam General Appearance: WD/WN, no apparent distress Respiratory/Chest: chest non-tender, lungs clear, normal breath sounds, no respiratory distress, no accessory muscle use Cardiovascular: no edema, no gallop, no JVD, no murmur, + bradycardia, + pertinent finding (weak pulses) Abdomen: normal bowel sounds, non tender, soft, no organomegaly Extremities: normal range of motion, non-tender, normal inspection, no pedal edema, no calf tenderness Neurologic/Psychiatric: community services officer II-XII nml as tested, no motor/sensory deficits, alert, normal mood/affect, oriented x 3 Skin: normal color, warm/dry, no rash Lymphatic: no adenopathy Assessment and Plan 89-year-old male from a residential facility who presents with third-degree heart block and hypotension. There is no direct reason for the heart block he only has mild hyperkalemia. Patient was seen by cardiology and discussions for an emergent and transvenous pacemaker were undertaken. The power of assistant city attorney did not wish to pursue any aggressive measures - complete AV block with associated hypotension: comfort measures only, patient continues to appear comfortable today PRN Morphine, Ativan assured patient's step son that he made the appropriate decision - CARMINA: Cr was up to 2.0 on admission, likely higher with no PO intake or fluids , not checking labs comfort measures, keep in hospital today due to using IV medications
[2017-06-07] MEDS: MoRPHine SULFATE 2 MG/ML CARP IV PRN (17:15)
[2017-06-07] MEDS: MoRPHine SULFATE 4 MG/ML 1 ML CARP\\VIAL IV PRN (23:01)
[2017-06-08] MEDS: MoRPHine SULFATE 2 MG/ML CARP IV PRN ×4 (06:12→23:50)
--- NOTE | 2017-06-08 07:46 | Clinical Documentation Query ---
CLINICAL DOCUMENTATION QUERY In your clinical opinion is this patient being managed for: ( xx ) Cardiogenic shock in setting of CHB treated with comfort measure, CXR, O2, IV morphine and ativan ( ) Other explanation of clinical findings (Please Explain) ( ) Unable to determine (Please Define) ( ) Need to Discuss ( ) Not Agree The medical record reflects the following clinical findings, treatment, and risk factors. Clinical Indicators: Bradycardia as low as mid 30's, hypotension as low as 50's/40's, patient was noted to minimally responsive and in respiratory distress. Treatment: O2, comfort care, scopolamine patch, morphine, ativan, Risk Factors: Age, CHB, Please clarify and document your clinical opinion in the progress notes and discharge summary. Terms such as "probable", "suspected", "likely", "questionable", "possible", or "still to be ruled out" are acceptable. IF IN AGREEMENT, YOU MUST DOCUMENT ABOVE DIAGNOSTIC STATEMENT IN DAILY PROGRESS NOTES AND DISCHARGE SUMMARY. This document is not part of the patient's record. Thank You, Anatoly Read, RN [phone]
[2017-06-08 08:00] VITALS: O2SAT 95
[2017-06-08] MEDS: CHECK SCOPOLAMINE PATCH PLACEMENT SCH ×3 (08:14→23:49)
--- NOTE | 2017-06-08 15:00 | Progress Note ---
Subjective Date of Service: Jun 08, 2017. Subjective pt is responsive to voice, moans and moves a bit, opens eyes. appears comfortable at rest Problem List Medical Problems: (1) Anemia Status: Acute (2) Elevated lactic acid level Status: Acute (3) Hypotension Status: Acute Review of Systems Constitutional: + weakness, + fatigue, No fever, No chills ROS is limited by pts lethargic state Objective Vital Signs Date Time Temp Pulse Resp B/P (MAP) Pulse Ox O2 Delivery O2 Flow Rate FiO2 06/08/17 00:00 Oxymask 6.0 06/07/17 20:00 Oxymask 6.0 06/07/17 16:00 Oxymask 6.0 Physical Exam General Appearance: WD/WN, + mild distress Respiratory/Chest: + respiratory distress, + decreased breath sounds, + accessory muscle use Cardiovascular: + bradycardia, + systolic murmur Abdomen: normal bowel sounds, soft Extremities: normal inspection, + pedal edema (trace) Assessment and Plan 89-year-old male from a halfway facility who presents with third-degree heart block cardiogenic shock and hypotension. There is no direct reason for the heart block he only has mild hyperkalemia. Patient was seen by cardiology and discussions for an emergent and transvenous pacemaker were undertaken. The power of criminal attorney did not wish to pursue any aggressive measures - complete AV block with associated hypotension: comfort measures only, patient continues to appear comfortable, will explore return to snf on hospice care PRN Morphine, Ativan - CARMINA: Cr was up to 2.0 on admission, likely higher with no PO intake or fluids , not checking labs comfort measures, continue but may return to snf is continues to sustain himself
--- NOTE | 2017-06-08 15:28 | Palliative Care Progress Note ---
Palliative Care Progress Note Date of Service Jun 08, 2017. Subjective meeting tomorrow afternoon with patient's son Noel Osborne. He is to call me with time.
[2017-06-08] MEDS: SCOPOLAMINE 1.5 MG TDSY TD SCH (16:57)
[2017-06-09] MEDS: CHECK SCOPOLAMINE PATCH PLACEMENT SCH (07:52)
[2017-06-09] MEDS: MoRPHine SULFATE 15 MG/0.75 ML UDP PO PRN ×2 (11:25→16:16)
[2017-06-09] MEDS ORDERED: SCOP1DIS14 TD (15:41)
--- NOTE | 2017-06-09 15:46 | Discharge Instructions ---
Discharge Instructions Date of Service Jun 09, 2017. Admission Reason for Admission: Complete Heart Block, Need For Comfort Care Discharge Discharge Diagnosis / Problem: third degress heart block Discharge Goals Goal(s): Decrease discomfort Activity Recommendations Activity Limitations: resume your previous activity . Instructions / Follow-Up Instructions / Follow-Up Hospice care at SNF Current Hospital Diet Patient's current hospital diet: Discharge Diet Recommended Diet: N/A (as tolerated comfort feeds) Pending Studies Studies pending at discharge: no Medical Emergencies . Who to Call and When: Medical Emergencies: If at any time you feel your situation is an emergency, please call 911 immediately. . Non-Emergent Contact Non-Emergency issues call your: Primary Care Provider . Past History Medical & Surgical History: (1) Complete heart block (2) Hyperlipidemia (3) Depression (4) Chronic obstructive lung disease (5) Benign hypertension . "Provider Documentation" section prepared by Good Mitchell. . VTE Core Measure Inpt VTE Proph given/why not?: Treatment not indicated (comfort care only)
[2017-06-09] MEDS ORDERED: OXYC10SO SL (16:12)
--- NOTE | 2017-06-09 16:20 | Discharge Summary ---
Discharge Summary Date of Service Jun 09, 2017. Discharge Summary Admission Date: Jun 05, 2017 at 17:52 Discharge Date: Jun 09, 2017 Discharge Disposition: long-term facility Principal Diagnosis: third-degree heart block Immunizations: Have You Had Influenza Vaccine: Unknown History of Tetanus Vaccine?: Unknown History of Pneumococcal: Yes Pneumococcal Date: February 14, 2001 History of Hepatitis B Vaccine: Unknown Consultations: Cardiology Medication Reconciliation New Medications: Oxycodone Oral Soln (Roxicodone Oral Soln) 5 Mg/5 Ml Soln 5 MG SL Q2H for Pain for 10 Days, #30 ML Scopolamine (Transderm-Scop) 1 Mg/3 Days Dis 1.5 MG TD Q72H for 9 Days, #3 PATCH Discontinued Medications: Acetaminophen (Tylenol) 500 Mg Tab 500 MG PO W/BREAKFAST, 0 Refills Aspirin (Aspir-81) 81 Mg Tab 1 TAB PO DAILY for 90 Days, #90 TAB 3 Refills Fluoxetine (Prozac) 10 Mg Cap 10 MG PO DAILY Fluticasone Propionate (Flovent Hfa) 120 Puffs/48852 Mcg Aero 2 PUFFS INH BID for 30 Days, #1 INHALER 3 Refills Glimepiride (Amaryl) 2 Mg Tab 2 MG PO W/SUPPER, TAB Glimepiride (Glimepiride) 2 Mg Tab 1.5 TAB PO W/BREAKFAST for 90 Days, TAB 3 Refills Insulin Lispro (Human) (Humalog) 100 Unit/Ml Inj 0 SC PRN for sliding scale bsg 351-400 = 8 units, 401-450 = 12 units, 451-500= 16 units, >500 = 18 units and recheck bsg in 2 hours and follow sliding scale Levothyroxine Sodium (Synthroid) 100 Mcg Tab 100 MCG PO DAILY for 30 Days, #30 TAB 5 Refills Lisinopril (Zestril) 20 Mg Tab 20 MG PO DAILY Metformin Hcl (Glucophage) 1,000 Mg Tab 1000 MG PO BIDM, TAB Morphine Cont Rel (Ms Contin) 15 Mg Tab 15 MG PO Q12, TAB DO NOT CRUSH Omeprazole (Prilosec) 20 Mg Capcr 20 MG PO DAILY Polyethylene Glycol 3350 (Miralax) 1 Pow Pow 17 GM PO DAILY Sennosides-Docusate Sodium (Senexon-S) 1 Tab Tab 1 TAB PO QAM Simvastatin (Zocor) 10 Mg Tab 10 MG PO QPM Tamsulosin Hcl (Flomax) 0.4 Mg Cap 0.4 MG PO QAM, CAP Hospital Course Patient is an 89 year old who was living in a assisted facility secondary to anoxic brain injury. He presented with profound bradycardia hypotension and was placed on dopamine. Conversation was had with the patient' s power of assistant prosecuting attorney cardiology was consulted. Based upon his advanced age and quality of life decision was made not to pursue pacemaker placement and the patient was changed to comfort care only. Consultation was obtained with palliative care and the patient will return to the assisted facility with hospice care once he returns. Patient is returning to the facility for additional comfort measures. CODE STATUS DO NOT RESUSCITATE Total Time Spent: Greater than 30 minutes This includes examination of the patient, discharge planning, medication reconciliation, and communication with other providers. Discharge Instructions Please refer to the electronic Patient Visit Report (Discharge Instructions) for additional information.
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
== END 2017-06-09 17:04 | disposition hospice, inpatient (51) | DRG 308 ==
LOC: EDBD 15:23 → C.EDB 15:23 → C.4E 17:52 → ENRESERV 18:11
PROVIDERS: ADMIT Internal Medicine; ATTEND Internal Medicine
DX: I44.2 Atrioventricular block, complete (principal); R57.0 Cardiogenic shock; N17.9 Acute kidney failure, unspecified; I95.9 Hypotension, unspecified; Z51.5 Encounter for palliative care; Z66 Do not resuscitate; W06.XXXA Fall from bed, initial encounter; Y92.230 Patient room in hospital as the place of occurrence of the external cause; E11.9 Type 2 diabetes mellitus without complications; I10 Essential (primary) hypertension; J44.9 Chronic obstructive pulmonary disease, unspecified; G89.21 Chronic pain due to trauma; E03.9 Hypothyroidism, unspecified; K21.9 Gastro-esophageal reflux disease without esophagitis; N40.0 Benign prostatic hyperplasia without lower urinary tract symptoms; Z87.820 Personal history of traumatic brain injury; Z87.01 Personal history of pneumonia (recurrent); Z79.1 Long term (current) use of non-steroidal anti-inflammatories (NSAID); Z79.82 Long term (current) use of aspirin; Z79.84 Long term (current) use of oral hypoglycemic drugs; Z79.891 Long term (current) use of opiate analgesic; Z79.899 Other long term (current) drug therapy; Z88.1 Allergy status to other antibiotic agents